=== PATIENT | female | born 1940 | race Asian ===

== ENCOUNTER 2018-04-16 04:52 | Inpatient (IN) | payer MEDICARE, OTHER ==
[~2018-04-16] VITALS: Ht 134.6 cm; Wt 56.8 kg
[2018-04-16 05:09] LABS: GLUCOSE,POINT OF CARE 193 MG/DL (70-110)
[2018-04-16] MEDS ORDERED: HYDR25TA PO (05:13)
[2018-04-16] MEDS ORDERED: METO50 PO (05:13)
[2018-04-16] MEDS ORDERED: LINA5TAB PO (05:13)
[2018-04-16] MEDS ORDERED: XALA2.5OS OU (05:13)
[2018-04-16] MEDS ORDERED: ATOR10TA84 PO (05:13)
[2018-04-16] MEDS ORDERED: BRIM15OS OU (05:13)
[2018-04-16] MEDS ORDERED: HYDR25TA84 PO (05:13)
[2018-04-16] MEDS ORDERED: ASPI-1182 PO (05:13)
[2018-04-16] MEDS ORDERED: GUAIFCF5L PO (05:13)
[2018-04-16] MEDS ORDERED: DILT60 PO (05:13)
[2018-04-16] MEDS ORDERED: ALEN70TA10 PO (05:13)
[2018-04-16] MEDS ORDERED: OMEG-135 PO (05:13)
[2018-04-16] MEDS ORDERED: VITA400C70 PO (05:13)
[2018-04-16] MEDS ORDERED: CALC1TAB93 PO (05:13)
[2018-04-16 06:04] LABS: BASOPHILS % (AUTO) 0.9 % (0.0-2.0); EOSINOPHILS % (AUTO) 1.4 % (1.0-6.0); HEMATOCRIT 40.2 % (36-46); HEMOGLOBIN 13.5 g/dL (12.0-16.0); LYMPHOCYTES # (AUTO) 1.4 K/uL (1.0-4.8); LYMPHOCYTES % (AUTO) 39.6 % (22.0-44.0); MEAN CORPUSCULAR HEMOGLOBIN 25.7 pg (26.0-34.0); MEAN CORPUSCULAR HGB CONC 33.5 G/dL (31.0-37.0); MEAN CORPUSCULAR VOLUME 77 fL (80-100); MONOCYTES # (AUTO) 0.6 K/uL (0.1-1.0); MONOCYTES % (AUTO) 17.1 % (2.0-9.0); NEUTROPHILS # (AUTO) 1.5 K/uL (1.8-7.7); PLATELET COUNT (AUTO) 166 K/uL (150-450); RED BLOOD CELL COUNT(AUTO) 5.23 MIL/uL (4.00-5.20); RED CELL DISTRIBUTION WIDTH 13.9 % (11.5-14.5)
[2018-04-16 06:20] LABS: ALANINE AMINOTRANSFERASE 74 U/L (12-78); ALBUMIN 3.6 g/dL (3.4-5.0); ALKALINE PHOSPHATASE 40 U/L (46-116); ANION GAP 7 mmol/L (8-16); ASPARTATE AMINOTRANSFERASE 59 U/L (15-37); BILIRUBIN,TOTAL 0.5 mg/dL (0.1-1.0); CALCIUM, TOTAL 8.5 mg/dL (8.8-10.5); CARBON DIOXIDE 28 mmol/L (22-29); CHLORIDE 84 mmol/L (98-107); CREATININE 0.61 mg/dL (0.60-1.30); GLUCOSE,RANDOM 149 mg/dL (70-110); LIPASE 191 U/L (73-393); UREA NITROGEN, BLOOD 8 mg/dL (7-18)
[2018-04-16 06:21] LABS: PLATELET MORPHOLOGY COMMENT GIANT PLTS PRESENT
[2018-04-16 06:24] LABS: GLOMERULAR FILTR. RATE CALC > 60 mL/min (>60); SODIUM SERUM 119 mmol/L (136-145)
[2018-04-16] MEDS ORDERED: HydrALAZINE HCL 25 MG TABLET PO ONE (06:45)
[2018-04-16] MEDS ORDERED: DILTIAZEM HCL 60 MG TABLET PO ONE (06:45)
[2018-04-16] MEDS ORDERED: POTASSIUM CHL 40 MEQ/D5-0.45NS 1,000 ML IV ONE (06:45)
[2018-04-16] MEDS ORDERED: ONDANSETRON HCL 4 MG/2 ML VIAL IVP PRN ×2 (06:45→11:45)
[2018-04-16] MEDS ORDERED: ACETAMINOPHEN 325 MG TABLET PO PRN ×2 (06:45→11:45)
[2018-04-16] MEDS ORDERED: DILTIAZEM HCL CD 120 MG ER CAPSULE PO ONE (06:45)
[2018-04-16] MEDS ORDERED: 0.9% SODIUM CHLORIDE 10 ML SYRINGE IVP PRN (06:45)
[2018-04-16] MEDS ORDERED: METOPROLOL TARTRATE 50 MG TABLET PO ONE (06:45)
[2018-04-16] MEDS ORDERED: ONDANSETRON HCL 4 MG/2 ML VIAL IVP ONE (06:45)
[2018-04-16 07:15] LABS: B-TYPE NATRIURETIC PEPTIDE 17 pg/mL (0-100)
[2018-04-16 07:54] LABS: APPEARANCE,URINE CLOUDY (CLEAR); BILIRUBIN,URINE NEGATIVE (NEGATIVE); GLUCOSE, URINE (UA) NEGATIVE (NEGATIVE); KETONES,URINE NEGATIVE (NEGATIVE); LEUKOCYTE ESTERASE ,URINE NEGATIVE (NEGATIVE); NITRATE,URINE POSITIVE (NEGATIVE); OCCULT BLOOD,URINE SMALL (NEGATIVE); PH,URINE 7.5 (5.0-8.0); PROTEIN,URINE NEGATIVE (NEGATIVE); UROBILINOGEN,URINE 0.2 mg/dL (<=1.0)
[2018-04-16 08:08] LABS: BACTERIA,URINE Many /HPF (None Seen); SQUAMOUS EPITHELIAL CELL,UR Rare /LPF (None Seen); WBC,URINE 0-2 /HPF (0-5)
[2018-04-16 10:18] VITALS: BP 140/77
[2018-04-16] MEDS: POTASSIUM CHLORIDE 20 MEQ in SODIUM CHLORIDE 0.9% 1,000 ML IV SCH (10:38)
[2018-04-16] MEDS ORDERED: MAGNESIUM HYDROXIDE SUSPENSION 30 ML UDCUP PO PRN (11:45)
[2018-04-16] MEDS ORDERED: BISACODYL 10 MG RECTAL RECTAL SUPPOSITORY PR PRN (11:45)
[2018-04-16] MEDS ORDERED: ZOLPIDEM TARTRATE 5 MG TABLET PO PRN (11:45)
[2018-04-16] MEDS ORDERED: HYDROCODONE/ACETAMINOPHEN 5-325 MG TABLET PO PRN (11:45)
[2018-04-16] MEDS ORDERED: MORPHINE SULFATE 2 MG/ML SYRINGE IVP PRN (11:45)
[2018-04-16] MEDS ORDERED: MORPHINE SULFATE 4 MG/ML SYRINGE IVP PRN (11:54)
[2018-04-16 11:56] VITALS: BP 130/67
[2018-04-16 14:05] LABS: ANION GAP 5 mmol/L (8-16); CALCIUM, TOTAL 8.4 mg/dL (8.8-10.5); CARBON DIOXIDE 29 mmol/L (22-29); CHLORIDE 89 mmol/L (98-107); CREATININE 0.57 mg/dL (0.60-1.30); GLUCOSE,RANDOM 129 mg/dL (70-110); POTASSIUM 3.3 mmol/L (3.5-5.1); UREA NITROGEN, BLOOD 8 mg/dL (7-18)
[2018-04-16 14:07] LABS: GLOMERULAR FILTR. RATE CALC > 60 mL/min (>60); SODIUM SERUM 123 mmol/L (136-145)
[2018-04-16 15:52] VITALS: BP 140/71
[2018-04-16] MEDS: HydrALAZINE HCL 25 MG TABLET PO SCH ×2 (16:09→20:49)
[2018-04-16] MEDS: HEPARIN SODIUM,PORCINE 5,000 UNITS/ML VIAL SQ SCH ×2 (16:10→23:55)
[2018-04-16 19:54] VITALS: BP 138/63
[2018-04-16] MEDS: ATORVASTATIN CALCIUM 10 MG TABLET PO SCH (20:48)
[2018-04-16] MEDS: DOCUSATE SODIUM 100 MG CAPSULE PO SCH (20:48)
[2018-04-16] MEDS: METOPROLOL TARTRATE 50 MG TABLET PO SCH (20:48)
[2018-04-16] MEDS: CALCIUM OYSTER SHELL 250 MG-VIT D3 125 UNITS TABLET PO SCH (20:49)
[2018-04-16 20:58] LABS: POTASSIUM,URINE RANDOM 21 mmol/L (12-75); PROTEIN,URINE RANDOM 12 mg/dL (0-11.9); SODIUM,URINE RANDOM 15 mmol/l (20-110)
[2018-04-16 21:01] LABS: OSMOLALITY,URINE 157 mOS/kg (50-1200)
[2018-04-16] MEDS: LATANOPROST 0.005% 2.5 ML OPHTHALMIC SOLUTION OU SCH (21:48)
[2018-04-16] MEDS: BRIMONIDINE TARTRATE 0.1% 5 ML OPHTHALMIC SOLUTION OU SCH (21:48)
[2018-04-16 23:33] LABS: ANION GAP 9 mmol/L (8-16); CALCIUM, TOTAL 8.4 mg/dL (8.8-10.5); CARBON DIOXIDE 26 mmol/L (22-29); CHLORIDE 92 mmol/L (98-107); CREATININE 0.67 mg/dL (0.60-1.30); GLUCOSE,RANDOM 113 mg/dL (70-110); POTASSIUM 3.3 mmol/L (3.5-5.1); SODIUM SERUM 127 mmol/L (136-145); UREA NITROGEN, BLOOD 14 mg/dL (7-18)
[2018-04-16 23:36] VITALS: BP 107/53
[2018-04-16 23:37] LABS: GLOMERULAR FILTR. RATE CALC > 60 mL/min (>60)
[2018-04-17 04:21] VITALS: BP 121/71
[2018-04-17] MEDS: POTASSIUM CHLORIDE 20 MEQ in SODIUM CHLORIDE 0.9% 1,000 ML IV SCH (04:40)
[2018-04-17 06:11] LABS: BASOPHILS % (AUTO) 0.6 % (0.0-2.0); EOSINOPHILS % (AUTO) 0.9 % (1.0-6.0); HEMATOCRIT 37.4 % (36-46); HEMOGLOBIN 12.7 g/dL (12.0-16.0); LYMPHOCYTES # (AUTO) 1.6 K/uL (1.0-4.8); LYMPHOCYTES % (AUTO) 38.7 % (22.0-44.0); MEAN CORPUSCULAR HEMOGLOBIN 26.1 pg (26.0-34.0); MEAN CORPUSCULAR VOLUME 77 fL (80-100); MONOCYTES # (AUTO) 0.6 K/uL (0.1-1.0); MONOCYTES % (AUTO) 14.9 % (2.0-9.0); NEUTROPHILS # (AUTO) 1.9 K/uL (1.8-7.7); NEUTROPHILS % (AUTO) 44.9 % (40.0-70.0); PLATELET COUNT (AUTO) 177 K/uL (150-450); RED BLOOD CELL COUNT(AUTO) 4.87 MIL/uL (4.00-5.20)
[2018-04-17 06:12] LABS: ANION GAP 9 mmol/L (8-16); CALCIUM, TOTAL 9.4 mg/dL (8.8-10.5); CARBON DIOXIDE 26 mmol/L (22-29); CHLORIDE 96 mmol/L (98-107); CREATININE 0.63 mg/dL (0.60-1.30); GLUCOSE,RANDOM 106 mg/dL (70-110); POTASSIUM 3.5 mmol/L (3.5-5.1); SODIUM SERUM 131 mmol/L (136-145); UREA NITROGEN, BLOOD 11 mg/dL (7-18)
[2018-04-17 06:47] LABS: GLOMERULAR FILTR. RATE CALC > 60 mL/min (>60)
[2018-04-17 07:39] VITALS: BP 126/69
[2018-04-17] MEDS: DOCUSATE SODIUM 100 MG CAPSULE PO SCH ×2 (08:37→20:13)
[2018-04-17] MEDS: DILTIAZEM HCL CD 120 MG ER CAPSULE PO SCH (08:37)
[2018-04-17] MEDS: PANTOPRAZOLE SODIUM 40 MG DR TABLET PO SCH (08:37)
[2018-04-17] MEDS: CALCIUM OYSTER SHELL 250 MG-VIT D3 125 UNITS TABLET PO SCH ×2 (08:37→20:13)
[2018-04-17] MEDS: HEPARIN SODIUM,PORCINE 5,000 UNITS/ML VIAL SQ SCH ×3 (08:37→23:43)
[2018-04-17] MEDS: OMEGA-3/DHA/EPA/FISH OIL 1,000 MG CAPSULE PO SCH (08:37)
[2018-04-17] MEDS: ASPIRIN 81 MG EC TABLET PO SCH (08:37)
[2018-04-17] MEDS: BRIMONIDINE TARTRATE 0.1% 5 ML OPHTHALMIC SOLUTION OU SCH ×2 (08:37→20:12)
[2018-04-17] MEDS: LinaGLIPtin 5 MG TABLET PO SCH (08:41)
[2018-04-17] MEDS: HydrALAZINE HCL 25 MG TABLET PO SCH ×3 (09:00→20:13)
[2018-04-17] MEDS: METOPROLOL TARTRATE 50 MG TABLET PO SCH ×2 (09:00→20:13)
[2018-04-17 11:13] VITALS: BP 100/52
[2018-04-17 12:09] LABS: ANION GAP 7 mmol/L (8-16); CALCIUM, TOTAL 8.8 mg/dL (8.8-10.5); CARBON DIOXIDE 28 mmol/L (22-29); CHLORIDE 97 mmol/L (98-107); CREATININE 0.65 mg/dL (0.60-1.30); GLUCOSE,RANDOM 100 mg/dL (70-110); POTASSIUM 3.5 mmol/L (3.5-5.1); SODIUM SERUM 132 mmol/L (136-145); UREA NITROGEN, BLOOD 11 mg/dL (7-18)
[2018-04-17 12:13] LABS: GLOMERULAR FILTR. RATE CALC > 60 mL/min (>60)
[2018-04-17 15:50] VITALS: BP 131/77
[2018-04-17 19:23] VITALS: BP 155/78
[2018-04-17] MEDS: ATORVASTATIN CALCIUM 10 MG TABLET PO SCH (20:13)
[2018-04-17] MEDS: LATANOPROST 0.005% 2.5 ML OPHTHALMIC SOLUTION OU SCH (20:13)
[2018-04-17] MEDS ORDERED: CefTRIAXone 1 GM/DEXTROSE 50 ML IV SCH (21:00)
[2018-04-17 23:45] VITALS: BP 132/71
[2018-04-18] MEDS: POTASSIUM CHLORIDE 20 MEQ in SODIUM CHLORIDE 0.9% 1,000 ML IV SCH (04:16)
[2018-04-18 04:22] VITALS: BP 143/73
[2018-04-18 06:20] LABS: EOSINOPHILS % (AUTO) 1.8 % (1.0-6.0); HEMATOCRIT 36.5 % (36-46); LYMPHOCYTES # (AUTO) 2.3 K/uL (1.0-4.8); LYMPHOCYTES % (AUTO) 51.5 % (22.0-44.0); MEAN CORPUSCULAR HEMOGLOBIN 25.8 pg (26.0-34.0); MEAN CORPUSCULAR VOLUME 78 fL (80-100); MONOCYTES # (AUTO) 0.7 K/uL (0.1-1.0); MONOCYTES % (AUTO) 16.1 % (2.0-9.0); NEUTROPHILS # (AUTO) 1.3 K/uL (1.8-7.7); NEUTROPHILS % (AUTO) 29.6 % (40.0-70.0); PLATELET COUNT (AUTO) 159 K/uL (150-450); RED BLOOD CELL COUNT(AUTO) 4.66 MIL/uL (4.00-5.20); RED CELL DISTRIBUTION WIDTH 13.7 % (11.5-14.5)
[2018-04-18 06:52] LABS: ANION GAP 9 mmol/L (8-16); CALCIUM, TOTAL 8.4 mg/dL (8.8-10.5); CARBON DIOXIDE 25 mmol/L (22-29); CHLORIDE 101 mmol/L (98-107); CREATININE 0.58 mg/dL (0.60-1.30); GLUCOSE,RANDOM 103 mg/dL (70-110); POTASSIUM 3.8 mmol/L (3.5-5.1); SODIUM SERUM 135 mmol/L (136-145); UREA NITROGEN, BLOOD 12 mg/dL (7-18)
[2018-04-18 07:00] LABS: GLOMERULAR FILTR. RATE CALC > 60 mL/min (>60)
[2018-04-18 07:16] VITALS: BP 151/76
[2018-04-18] MEDS: OMEGA-3/DHA/EPA/FISH OIL 1,000 MG CAPSULE PO SCH (08:42)
[2018-04-18] MEDS: HEPARIN SODIUM,PORCINE 5,000 UNITS/ML VIAL SQ SCH (08:42)
[2018-04-18] MEDS: LinaGLIPtin 5 MG TABLET PO SCH (08:43)
[2018-04-18] MEDS: CALCIUM OYSTER SHELL 250 MG-VIT D3 125 UNITS TABLET PO SCH (08:43)
[2018-04-18] MEDS: ASPIRIN 81 MG EC TABLET PO SCH (08:43)
[2018-04-18] MEDS: HydrALAZINE HCL 25 MG TABLET PO SCH (08:43)
[2018-04-18] MEDS: DOCUSATE SODIUM 100 MG CAPSULE PO SCH (08:44)
[2018-04-18] MEDS: PANTOPRAZOLE SODIUM 40 MG DR TABLET PO SCH (08:44)
[2018-04-18] MEDS: METOPROLOL TARTRATE 50 MG TABLET PO SCH (08:44)
[2018-04-18] MEDS: DILTIAZEM HCL CD 120 MG ER CAPSULE PO SCH (08:44)
[2018-04-18] MEDS: BRIMONIDINE TARTRATE 0.1% 5 ML OPHTHALMIC SOLUTION OU SCH (08:45)
[2018-04-18] MEDS ORDERED: HYDR-4173 PO (11:05)
[2018-04-18] MEDS ORDERED: CIPR500S5 PO (11:07)
[2018-04-18] MEDS ORDERED: CIPR-245 PO (11:08)
[2018-04-18 11:47] VITALS: BP 135/66
== END 2018-04-18 14:25 | disposition home or self-care (01) | DRG 690 ==
LOC: EMS 04:52 → 5N 07:12
PROVIDERS: ADMIT Internal Medicine; ATTEND Internal Medicine
DX: N39.0 Urinary tract infection, site not specified (principal); E87.1 Hypo-osmolality and hyponatremia; I16.0 Hypertensive urgency; E87.6 Hypokalemia; E78.5 Hyperlipidemia, unspecified; I12.9 Hypertensive chronic kidney disease with stage 1 through stage 4 chronic kidney disease, or unspecified chronic kidney disease; E11.21 Type 2 diabetes mellitus with diabetic nephropathy; N18.2 Chronic kidney disease, stage 2 (mild); E11.22 Type 2 diabetes mellitus with diabetic chronic kidney disease; E11.40 Type 2 diabetes mellitus with diabetic neuropathy, unspecified; E78.00 Pure hypercholesterolemia, unspecified; E87.8 Other disorders of electrolyte and fluid balance, not elsewhere classified; Z85.3 Personal history of malignant neoplasm of breast; Z90.12 Acquired absence of left breast and nipple
CPT/HCPCS: 83935; 84133; 84156; 84300; 87086; 93005; 96365; 96375; G0378; J0696; J1644; J2405; J3480; J7030

== ENCOUNTER → 2018-06-14 | Outpatient (CLI) | payer MEDICARE, OTHER ==
[~2018-06-14] MED LIST: ALEN70TA10 PO; ASPI-1182 PO; ATOR10TA84 PO; BRIM15OS OU; CALC1TAB93 PO; CIPR-245 PO; DILT60 PO; GUAIFCF5L PO; HYDR-4173 PO; LINA5TAB PO; METO50 PO; OMEG-135 PO; VITA400C70 PO; XALA2.5OS OU
== END | disposition home or self-care (01) ==
LOC: RADPV 08:15
PROVIDERS: ATTEND Internal Medicine Nephrology
DX: K75.9 Inflammatory liver disease, unspecified (principal)
CPT/HCPCS: 76700

== ENCOUNTER → 2019-06-21 | Outpatient (CLI) | payer MEDICARE, OTHER ==
[~2019-06-21] MED LIST changes: +ASPI-1111 PO; -ASPI-1182 PO
[2019-06-21 11:19] LABS: APPEARANCE,URINE CLEAR (CLEAR); BILIRUBIN,URINE NEGATIVE (NEGATIVE); GLUCOSE, URINE (UA) 100 mg/dL (NEGATIVE); KETONES,URINE NEGATIVE (NEGATIVE); LEUKOCYTE ESTERASE ,URINE NEGATIVE (NEGATIVE); NITRATE,URINE NEGATIVE (NEGATIVE); OCCULT BLOOD,URINE NEGATIVE (NEGATIVE); PH,URINE 7.5 (5.0-8.0); PROTEIN,URINE NEGATIVE (NEGATIVE); UROBILINOGEN,URINE 0.2 mg/dL (<=1.0)
[2019-06-21 11:30] LABS: CREATININE,URINE RANDOM 25.2 mg/dL (30.0-125.0); PROTEIN,URINE RANDOM 16 mg/dL (0-11.9)
[2019-06-21 11:38] LABS: ANION GAP 7 mmol/L (8-16); CALCIUM, TOTAL 9.1 mg/dL (8.8-10.5); CARBON DIOXIDE 31 mmol/L (22-29); CHLORIDE 102 mmol/L (98-107); CHOL/HDL RATIO 2.7 (3.9-5.7); CHOLESTEROL 178 mg/dL (131-200); CREATININE 0.75 mg/dL (0.60-1.30); GLUCOSE,RANDOM 186 mg/dL (70-110); HDL CHOLESTEROL 67 mg/dL (40-60); LDL CHOL (CALC.) 90 mg/dL (0-130); POTASSIUM 3.2 mmol/L (3.5-5.1); SODIUM SERUM 140 mmol/L (136-145); TRIGLYCERIDES 103 mg/dL (15-150); UREA NITROGEN, BLOOD 10 mg/dL (7-18)
[2019-06-21 11:39] LABS: GLOMERULAR FILTR. RATE CALC > 60 mL/min (>60)
[2019-06-21 12:43] LABS: BACTERIA,URINE None Seen /HPF (None Seen); RBC,URINE None Seen /HPF (0-2); WBC,URINE None Seen /HPF (0-5)
== END | disposition home or self-care (01) ==
LOC: LABPV 07:58
PROVIDERS: ATTEND Internal Medicine Nephrology
DX: I12.9 Hypertensive chronic kidney disease with stage 1 through stage 4 chronic kidney disease, or unspecified chronic kidney disease (principal); E11.22 Type 2 diabetes mellitus with diabetic chronic kidney disease; N18.9 Chronic kidney disease, unspecified; E78.5 Hyperlipidemia, unspecified
CPT/HCPCS: 82570; 84156